=== PATIENT | female | born 1935 | race Caucasian/White ===

== ENCOUNTER → 2016-11-22 | Outpatient (CLI) | payer MEDICARE, OTHER ==
--- NOTE | 2016-11-24 11:25 | NM ---
EXAM DESCRIPTION: NM BONE SCAN WHOLE BODY CLINICAL HISTORY: 80 y/o F, PAIN IN THORACIC SPINE COMPARISON: None. FINDINGS: Whole-body bone scan was performed after the IV administration of 29 mCi technetium 99 M-MDP. Delay between injection and imaging is not provided. There is a small focus of increased activity anteriorly and a single right-sided rib, probably the 7th rib. This likely represents an old healed or healing fracture period degenerative activity is noted at several levels in the mid thoracic spine period degenerative activity is also noted in the shoulders, right knee and cervical spine period no additional pathologic activity is noted. Physiologic soft tissue activity is noted in the kidneys and bladder. IMPRESSION: Degenerative activity at several locations as detailed above including the cervical and thoracic spine period Old healed or healing right-sided rib fracture, probably the 7th rib period Electronically signed by: Gerry Riley DO 11/24/2016 11:22
== END | disposition home or self-care (01) ==
LOC: NM 09:04
PROVIDERS: ATTEND Family Medicine
DX: M54.6 Pain in thoracic spine (principal)

== ENCOUNTER → 2017-06-19 | Outpatient (CLI) | payer MEDICARE, OTHER | END | disposition home or self-care (01) | LOC: GMAB 10:54 | PROVIDERS: ATTEND Family Medicine | DX: I10 Essential (primary) hypertension (principal) ==

== ENCOUNTER → 2017-07-29 | Outpatient (CLI) | payer MEDICARE, OTHER | END | disposition home or self-care (01) | LOC: GMAB 18:16 | PROVIDERS: ATTEND Family Medicine | DX: R42 Dizziness and giddiness (principal); R41.82 Altered mental status, unspecified; R41.9 Unspecified symptoms and signs involving cognitive functions and awareness ==

== ENCOUNTER → 2017-08-02 | Outpatient (CLI) | payer MEDICARE, OTHER ==
--- NOTE | 2017-08-03 10:01 | MRI ---
Procedure: MR BRAIN WITHOUT IV CONTRAST Exam Date: 08/02/2017 12:59 PM CDT Ordering Provider: NONI RENDON Clinical Indication: GAIT DISORDER Comparison: None Technique: Multiplanar, multisequence images of the brain were obtained without administration of intravenous gadolinium based contrast. Findings: No evidence of diffusion restriction to suggest acute infarct. 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 Global parenchymal volume loss is present. There is no extra-axial fluid collection. No acute or chronic intracranial hemorrhage is seen. No evidence of cerebellar tonsillar herniation. Sellar/suprasellar structures are intact. The cervicomedullary junction is within normal limits. Partial opacification of the sphenoid sinuses. Impression: 1. No acute infarction. No acute intracranial abnormality. 2. Moderate microvascular ischemic changes and mild global parenchymal volume loss.. Electronically signed by: Cristian Calles MD 08/03/2017 9:59 AM CDT
== END | disposition home or self-care (01) ==
LOC: MRI 15:01
PROVIDERS: ATTEND Family Medicine
DX: R26.89 Other abnormalities of gait and mobility (principal)

== ENCOUNTER → 2017-08-26 | Outpatient (CLI) | payer MEDICARE, OTHER | END | disposition home or self-care (01) | LOC: GMAB 17:27 | PROVIDERS: ATTEND Family Medicine | DX: R30.0 Dysuria (principal) ==

== ENCOUNTER → 2017-09-24 | Outpatient (CLI) | payer MEDICARE, OTHER ==
--- NOTE | 2017-09-25 02:34 | MRI ---
EXAM DATE: 09/24/2017 1:05 PM [facility]. PROCEDURE: MR CERVICAL SPINE WITHOUT IV CONTRAST. INDICATION: CERVICALGIA. COMPARISON: MRI cervical spine from 2013. TECHNIQUE: Multiplanar T1 and T2 MRI images of the cervical spine were acquired without administration of intravenous contrast. FINDINGS: The cervical vertebral bodies demonstrate normal height and stature. Minimal 2 to 3 mm anterolisthesis C6 on C7, likely degenerative. Mild intervertebral disc space height loss seen throughout the cervical spine with desiccation. Normal marrow signal. Short segment cord signal abnormality at the level of C6-C7 likely secondary to severe spinal canal stenosis. The remainder of the cervical cord demonstrates normal signal and morphology. C2-C3: No spinal canal stenosis. Uncovertebral spurring facet arthropathy contributes to moderate left and mild right foraminal stenoses. C3-C4: No significant disc bulge. No spinal canal or neural foraminal narrowing. Mild bilateral facet arthropathy. C4-C5: Mild disc bulge with osteophytic spurring indenting the ventral cord. Uncovertebral spurring facet arthropathy without significant foraminal stenosis. C5-C6: Disc bulge with osteophytic spurring and ligamentous hypertrophy contributes to moderate spinal canal stenosis. Uncovertebral spurring and facet arthropathy results in severe left and moderate right foraminal stenoses. C6-C7: Anterolisthesis, disc bulge, and ligamentous hypertrophy results in severe spinal canal stenosis. Cord signal abnormality at this level. Uncovertebral spurring facet arthropathy contributes to severe left and moderate right foraminal stenoses. C7-T1: No significant disc bulge. No spinal canal or neural foraminal narrowing. Multinodular thyroid with the largest nodule measuring 2.2 cm. The soft tissues of the neck otherwise unremarkable. T2 hyperintensity within the left IJ may be secondary to slow flow. The partially visualized hannah demonstrates T2 signal hyperintensity likely related to chronic microvascular angiopathy, better seen on prior MRI of the brain. 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 Moderate spinal canal stenosis C5-C6. Severe left foraminal stenoses at C5-C6 and C6-C7. Multinodular thyroid with the largest nodule measuring 2.2 cm. If not previously done outpatient thyroid ultrasound is recommended for further evaluation. Electronically signed by: Gonzalez Cardona MD 09/25/2017 2:32 AM [facility]
== END | disposition home or self-care (01) ==
LOC: MRI 16:37
PROVIDERS: ATTEND Family Medicine
DX: M54.2 Cervicalgia (principal)

== ENCOUNTER → 2017-10-24 | Outpatient (CLI) | payer MEDICARE, OTHER | END | disposition home or self-care (01) | LOC: GMAB 17:04 | PROVIDERS: ATTEND Family Medicine | DX: R30.0 Dysuria (principal) ==

== ENCOUNTER → 2017-11-20 | Outpatient (CLI) | payer MEDICARE, OTHER ==
--- NOTE | 2017-11-20 16:01 | MRI ---
EXAM DESCRIPTION: Lumbar Spine w/o Contrast MRI. CLINICAL HISTORY: PERIPHERAL VASCULAR DISEASE, MUSCLE WEAKNESS COMPARISON: None. TECHNIQUE: Multiplanar, multiple standard sequences, high-field, non contrast MRI, lumbar spine. FINDINGS: L5-S1: Disc desiccation posterior disc space loss. Low-density in the mid -disc. Posterior 3 mm annular fissure abutting the thecal sac. Minimal narrowing of the bilateral lateral recesses. Moderate canal narrowing. Bilateral minimal facet arthrosis and ligament hypertrophy. Mild left foraminal stenosis. Moderate right foraminal narrowing. L4-5: Moderate to severe disc space loss. Anterior bulging and endplate ridging. Gas in the anterior disc. Posterior broad-based bulge with annular fissure 4 mm impressing on the thecal sac. Right paracentral 7 mm protrusion impinging the right ventral thecal sac and the descending right L5 nerve just above the lateral recess with right paracentral canal stenosis. Bilateral ligament hypertrophy. Disc bulge into the left foramen and impinging the exiting left L4 nerve roots stenosis. Moderate narrowing right foramen by disc osteophyte complex. L3-4: Disc desiccation and anterior bulging and endplate ridging. Minimal disc space loss. Grade 1 anterolisthesis 3 mm. Posterior midline 5 mm disc protrusion impressing on the thecal sac and abutting the bilateral L4 nerve roots. Narrowing of the bilateral lateral recesses.. Bilateral facet arthrosis and moderate flavum ligament hypertrophy flattening the bilateral subarticular recesses. Mild canal stenosis centrally. Mild right foraminal narrowing and moderate left foraminal narrowing. L2-3: Disc desiccation and anterior bulging and endplate ridging. No significant posterior bulging. Moderate facet arthrosis and ligament hypertrophy flattening the posterior canal and the subarticular recesses. Borderline mild canal stenosis. Bilateral foramina are minimally narrowed. L1-2: Disc desiccation. Tiny posterior midline disc bulge. Facet arthrosis and moderate flavum ligament hypertrophy flattening the bilateral subarticular recesses lateral recesses unremarkable. Moderate canal narrowing. Mild bilateral foraminal narrowing. Conus terminates at L1. T12-L1: Disc desiccation with anterior bulging. Tiny posterior midline bulge. No concentric no significant canal narrowing. Bilateral mild foraminal narrowing. Mild facet arthrosis and flavum ligament hypertrophy. Paravertebral soft tissues paraspinal muscle atrophy.. Normal marrow signal in the remaining vertebral bodies and the posterior elements. Vertebral bodies are not compressed at any level. IMPRESSION: 1. Moderate to severe spondylosis L4-5 and retrolisthesis. Posterior disc protrusion impinging the descending right L5 nerve. Annular fissure in the disc. Left foraminal stenosis by bulging disc impinging the left L4 nerve. 2. L5-S1 disc desiccation and posterior disc bulge. Mild left neural foraminal stenosis. 3. Grade 1 anterolisthesis L3-4. Central mild canal stenosis. Posterior midline disc protrusion abutting the bilateral descending L4 nerve roots. 4. Borderline mild canal stenosis at L2-3 due to hypertrophy and arthrosis of the posterior elements. No significant disc bulge. Electronically signed by: Demond Gibbons MD 11/20/2017 4:00 PM [facility]
--- NOTE | 2017-11-20 16:58 | US ---
EXAM DESCRIPTION: Thyroid: Ultrasound. CLINICAL HISTORY: THYROID NODULE COMPARISON: Ultrasound thyroid 08/19/2009. TECHNIQUE: Transcutaneous scannin-dimensional and Doppler modes. Largest nodule(s) bilaterally will have point score for TI-RADS. FINDINGS: Right lobe dimensions 5.6 x 2.5 x 1.9 cm. Inhomogeneous echoes. Hypoechoic nodule with ill-defined reeder in the mid lobe appears solid. Dimensions are 2.0 x 1.6 x 1.5. No echogenic foci, nonvascular, and wider than tall orientation. Very hypoechoic nodule posterior right lobe mid aspect measures 1.2 x 1.1 x 0.8 cm. Well-defined margin with no echogenic foci, and wider than tall orientation.. Not vascular. Decreased vascularity in the remainder of the right lobe with No echogenic foci. Contour right lobe smooth. Juxta-thyroid masses/fluid: none. Left lobe dimensions 3.7 x 1.7 x 1.7 cm. Inhomogeneous echoes. Hypoechoic solid nodule in the lower pole posteriorly measures 1.9 x 1.5 x 1.4 cm with well-defined reeder, no echogenic foci. Wider than tall orientation. Nonvascular. Isoechoic mostly solid nodule in the upper left lobe measures 1.7 x 1.5 x 1.3 cm. Ill-defined reeder taller than wide orientation with minimal vascularity. No echogenic foci. Decreased vascularity in the remainder of the lobe. No echogenic foci. Contour left lobe smooth. Juxta-thyroid masses/fluid: none. Isthmus thickness 2.7 mm. Heterogeneous echoes. No cystic, no solid, and no complex lesions. Decreased vascularity. Contour smooth. IMPRESSION: 1. 2.0 cm solid nodule in the right lobe with ACR TI-RADS grade 4-moderately suspicious. Diameter greater than 1.5 cm, so fine needle aspiration sampling is recommended. 1.2 cm nodule in the right lobe with ACR TI-RADS grade 4-moderately suspicious. Diameter less than 1.5 cm no one-year follow-up should be considered. Please see below.* 2. 1.9 cm solid nodule in the lower left lobe with ACR TI RADS grade 4-moderately suspicious. Diameter greater than 1.5 cm, so fine needle aspiration sampling should be considered. 1.7 cm solid nodule in the upper left lobe with antiparallel orientation. ACR TI RADS grade 4-moderately suspicious. Diameter greater than 1.5 cm cyst with fine needle aspiration sampling should be considered. Please see below.* 3. No discrete solid masses, cystic masses, or edema in the surrounding soft tissues. *ACR TI-RADS recommendations: TR5 (greater than or equal to 7 points) - FNA if greater than or equal to 1 cm, follow-up if 0.5 - 0.9 cm every year for 5 years TR4 (4-6 points) - FNA if greater than or equal to 1.5 cm, follow-up if 1 - 1.4 cm in 1, 2, 3 and 5 years TR3 (3 points) - FNA if greater than or equal to 2.5 cm, follow -up if 1.5 - 2.4 cm in 1, 3 and 5 years TR2 (2 points) and TR1 (0 points) - No FNA or follow-up * ACR TI-RADS recommends that no more than two nodules with the highest ACR TI-RADS total point should be biopsied and no more than four nodules should be followed. White Paper of the ACR TI-RADS Committee, JUDI, 2017. Electronically signed by: Demond Gibbons MD 11/20/2017 4:57 PM [facility]
== END ==
LOC: GMAB 12:36
PROVIDERS: ATTEND Family Medicine
DX: M51.27 Other intervertebral disc displacement, lumbosacral region (principal); M47.896 Other spondylosis, lumbar region; M43.16 Spondylolisthesis, lumbar region; I73.9 Peripheral vascular disease, unspecified; M62.81 Muscle weakness (generalized); E04.1 Nontoxic single thyroid nodule

== ENCOUNTER → 2018-08-27 | Outpatient (CLI) | payer MEDICARE, OTHER | LOC: GMAE 11:31 | PROVIDERS: ATTEND Family Medicine | DX: I10 Essential (primary) hypertension (principal) ==

== ENCOUNTER → 2019-09-07 | Outpatient (CLI) | payer MEDICARE, OTHER | LOC: GMAE 11:28 | PROVIDERS: ATTEND Family Medicine | DX: I10 Essential (primary) hypertension (principal) ==

== ENCOUNTER → 2020-03-28 | Outpatient (CLI) | payer MEDICARE, OTHER | LOC: GMAE 14:40 | PROVIDERS: ATTEND Family Medicine | DX: Z79.899 Other long term (current) drug therapy (principal); R06.02 Shortness of breath ==

== ENCOUNTER → 2020-04-01 | Outpatient (CLI) | payer MEDICARE, OTHER | LOC: ECHO 09:00 | PROVIDERS: ATTEND Family Medicine | DX: R06.02 Shortness of breath (principal); I51.7 Cardiomegaly; I36.9 Nonrheumatic tricuspid valve disorder, unspecified; I34.9 Nonrheumatic mitral valve disorder, unspecified ==

== ENCOUNTER → 2020-09-28 | Outpatient (CLI) | payer MEDICARE, OTHER | LOC: GMAE 10:28 | PROVIDERS: ATTEND Family Medicine | DX: Z79.899 Other long term (current) drug therapy (principal); E78.2 Mixed hyperlipidemia ==

== ENCOUNTER → 2020-11-17 | Outpatient (CLI) | payer MEDICARE, OTHER ==
--- NOTE | 2020-11-17 21:03 | US ---
EXAM DESCRIPTION: Carotid Duplex: ULTRASOUND. CLINICAL HISTORY: 84 years Female DIZZINESS AND GIDDINESS COMPARISON: MRI scan of the brain July 2017. TECHNIQUE: Transcutaneous scanning utilizing kay-scale and Doppler modes to evaluate the bilateral carotid systems and vertebral arteries. Percentage of diameter of stenosis or no stenosis recorded will be based upon NASCET criteria. FINDINGS: Peak systolic/end diastolic velocities (CM-Sec) CCA Right 49/16 Left 61/20 to. ICA Right proximal 38/17, distal 55/24. Left proximal 57/26, mid 69/30. Vertebral Right 29/11 Left 48/20. ECA (PS Only) Right 36 left 35. ICA/CCA peak systolic velocity ratio: Right 1.1 Left 1.1 ICA/CCA end diastolic velocity ratio: Right 1.6 Left 1.4 Vertebral arteries: antegrade flow. Comments: Atherosclerotic calcifications bilaterally, predominantly in the left common carotid bulb. Area and Diameter stenosis of the bulb is less than 30% IMPRESSION: 1. Doppler evaluation of the bilateral carotid systems and vertebral arteries shows no hemodynamically significant stenoses (less than 70%). 2. No significant amount of plaque in the carotid arteries bilaterally. Bilateral vertebral arteries showed antegrade-cephalad flow. Electronically signed by: Demond Gibbons MD 11/17/2020 9:02 PM [facility]
== END ==
LOC: US 09:56
PROVIDERS: ATTEND Family Medicine
DX: R55 Syncope and collapse (principal); R42 Dizziness and giddiness